=== PATIENT | female | born 1995 | race Caucasian/White ===

== ENCOUNTER 2018-06-08 00:11 | Inpatient (IN) ==
[2018-06-08] MEDS ORDERED: *HR* FentaNYL (PF) 100 MCG/2 ML VIAL IVP STA (05:48)
[2018-06-08] MEDS ORDERED: *HR* LORazepam 2 MG/ML VIAL IVP STA (05:49)
[2018-06-08] MEDS ORDERED: *HR* FentaNYL (PF) 100 MCG/2 ML VIAL IVP PRN (05:52)
[2018-06-08] MEDS ORDERED: Naloxone 0.4 MG/ML INJ IVP PRN (05:59)
[2018-06-08] MEDS: Clindamycin 600 MG/50 ML 600 MG/50 ML IV.SOLN IVPB SCH ×3 (06:08→22:22)
[2018-06-08] MEDS: Nicotine 21 MG PATCH.TD24 TD SCH (06:08)
[2018-06-08] MEDS: Ketorolac 30 MG/ML VIAL IVP SCH ×3 (06:09→22:22)
--- NOTE | 2018-06-08 06:16 | Internal Med History&Physical ---
Date of Encounter: 06/08/18 Time of Encounter: 06:13 Internal Medicine - H&P: HPI Chief complaint: "Face and neck pain and painful swallowing" Admitted From: Hospital to Hospital Transfer Plans for Post Hospital Care: Home History of present illness: Ms. Latham is a 22 year old female who presented to [facility] ED today for increased swelling and pain to her face and neck, and painful swallowing. She had wisdom teeth extraction 2 days ago. She states that dentist knew that she had a dental infection prior to the procedure. She was sent home after extraction with a course of PO clindamycin. She states that symptoms got worse , and she was starting to have some breathing difficulties, so she came to ED for evaluation. ED physician spoke with ENT here, who recommended steroids and IV antibiotics. She was given solumedrol 125 mg IV once and clindamycin 600 mg IV once prior to transfer. She states that breathing difficulties have resolved since arrival here, so there is decreased concern for airway compromise. She still has very painful swallowing, somewhat improved from initial presentation. She states that she feels anxious due to the pain, and she cannot sleep due to the anxiety. She currently smokes 1 PPD tobacco. She denies any PMH. At this time, she denies fever, chills, chest pain, SOB, nausea , vomiting, abdominal pain, changes in bladder, or changes in bowels. Past Med Surg Social Fam HX - Past Medical History Attestation: Yes The following information was validated with the patient. Source: patient Medical history: no medical history Psychiatric history: anxiety, depression - Past Surgical History Surgical History: appendectomy, Additional surgical history: WISDOM TEETH REMOVED ortho surgery on hand - Social History Smoking Status: Current every day smoker Packs per day: 1 Smokeless Tobacco Status: No Alcohol use: occasionally Drug use: none - Family History Mother Name: Danyelle Gomez Age: 42 Living Status: Still Living Hx Family HEENT Disorders: Yes (Migranes) Father Name: Vasu Mayberry Age: 42 Living Status: Still Living Hx Family Cardiac Disorders: Yes (HTN) Hx Family Musculoskeletal Disorders: Yes (arthritis) - Additional Family History Additional family history: Family history verified with patient. Internal Medicine - H&P: Meds Clindamycin HCl 300 mg PO Q6H 06/07/18 [History] HYDROcodone/Acet 5/325 mg [[place] 5-325 mg] 1 tab PO Q6H PRN 06/07/18 [History] Ibuprofen 800 mg PO Q8H 06/07/18 [History] 3 Allergy/AdvReac Type Severity Reaction Status Date / Time Amoxicillin [From Amoxil] Allergy Rash Verified 06/07/18 20:18 Penicillins [PCN] Allergy Rash Verified 06/07/18 20:17 All Systems PM: A 10-system review of systems was performed and is negative for pertinent findings except as documented above in the HPI. - Constitutional Vitals: Temp Pulse Resp BP Pulse Ox 97.7 F 88 14 115/81 96 06/08/18 02:52 06/08/18 02:52 06/08/18 02:52 06/08/18 02:52 06/08/18 02:52 General appearance: Present: cooperative, mild distress (Due to pain), A&O X 3, pleasant, obese, answers questions appropriately - Head Head exam: Present: atraumatic, normocephalic - Eye Eye exam: Present: EOMI, PERRL. Absent: conjunctival injection, nystagmus, scleral icterus - ENT ENT exam: Present: mucous membranes moist, normal external ear exam. Absent: normal oropharynx (Unable to fully evaluate due to patient being unable to open mouth secondary to pain) - Neck Neck exam general surgery: Present: tenderness, trachea midline. Absent: lymphadenopathy, thyromegaly Additional comments: Moderate edema of anterior neck under jaw with moderate TTP - Respiratory Respiratory exam: Present: CTAB. Absent: accessory muscle use, rales, rhonchi, wheezes Additional comments: Normal WOB - Cardiovascular Cardiovascular exam: Present: RRR, +S1, +S2. Absent: diastolic murmur, gallop, rubs, systolic murmur Additional comments: No BLE edema - GI/Abdominal GI/Abdominal exam: Present: normal bowel sounds, soft. Absent: distended, hepatomegaly, mass, splenomegaly, tenderness - Neurological Exam Neurological exam: Present: alert, CN II-XII intact, oriented X3, no focal deficits, strengths equal and symetr throughout. Absent: motor sensory deficit , facial droop, speech deficit - Psychiatric Psychiatric exam: Present: normal affect, normal mood. Absent: agitated, anxious, depressed - Skin Skin exam: Present: dry, intact, warm. Absent: cyanosis - Assessment and plan (1) Cellulitis Current Visit: Yes Status: Acute Assessment and plan: Admit as inpatient with telemetry. Obtain repeat labwork now. Will keep NPO for now due to significant odynophagia. Will consult speech therapy in AM for swallow evaluation. Start IV NS at 125 ml/hr. Continue clindamycin 600 mg IV Q8H. Received one-time dose of solumedrol 125 mg IV at OSH ED. Start toradol 30 mg IV Q8H. Start SL oxycodone and IV fentanyl PRN pain. Will consult ENT in AM; appreciate their input. Monitor closely for any signs of airway compromise. Qualifiers: Site of cellulitis: face Qualified Code(s): L03.211 - Cellulitis of face (2) Dental infection Current Visit: Yes Status: Acute Assessment and plan: Management as per above. (3) Anxiety Current Visit: Yes Status: Acute Assessment and plan: Acute anxiety from stress of illness. Will give ativan 1 mg IV once. (4) Insomnia Current Visit: Yes Status: Acute Assessment and plan: Insomnia secondary to anxiety. Will give ativan 1 mg IV once as per above. Qualifiers: Insomnia type: due to medical condition Qualified Code(s): G47.01 - Insomnia due to medical condition (5) Nicotine dependence Current Visit: Yes Status: Chronic Assessment and plan: Counselled on smoking cessation. Start nicotine transdermal 21 mg QD. Qualifiers: Nicotine product type: cigarettes Substance use status: other nicotine- induced disorder Qualified Code(s): F17.218 - Nicotine dependence, cigarettes , with other nicotine-induced disorders (6) DVT prophylaxis Current Visit: Yes Status: Acute Assessment and plan: Start SCDs and lovenox 40 mg SQ QD. - Time Spent With Patient Total time spent is greater than 50% in coordination of care (as documented) at patient's floor/unit and/or counseling patient: less than 15 minutes
[2018-06-08] MEDS: *HR* Enoxaparin 40 MG/0.4 ML SYRINGE SQ SCH (06:38)
[2018-06-08] MEDS: 0.9 % Sodium Chloride 1,000 ML IVC SCH ×2 (06:38→15:42)
[2018-06-08 06:52] LABS: Basophils % 0.1 %; Hematocrit 44.4 % (35.3-44.9); Immature Granulocytes % 0.5 % (0-4); Lymphocytes # 0.7 K/mcL (0.6-4.6); Lymphocytes % 5.1 %; Mean Corpuscular HGB Conc 33.8 g/dL (31.6-35.5); Mean Corpuscular Hemoglobin 29.8 pg (28.0-33.3); Mean Corpuscular Volume 88.1 fL (83.0-100.0); Monocytes # 0.1 K/mcL (0.0-1.3); Monocytes % 0.5 %; Neutrophils # 12.1 K/mcL (1.6-8.9); Platelet Count 268 K/mcL (140-400); Red Blood Count 5.04 M/mcL (3.82-4.97); Red Cell Distribution Width 12.7 % (11.5-14.5); Segmented Neutrophils % 93.8 %
[2018-06-08 07:07] LABS: Alanine Aminotransferase 12 Units/L (7-52); Albumin 4.1 g/dL (3.5-5.7); Albumin/Globulin Ratio 1.1 (1.1-2.2); Alkaline Phosphatase 58 Units/L (34-104); Aspartate Amino Transferase 12 Units/L (13-39); BUN/Creatinine Ratio 16 (6-26); Bilirubin,Total 0.6 mg/dL (0.3-1.0); Blood Urea Nitrogen 12 mg/dL (6-20); Calcium 9.6 mg/dL (8.6-10.3); Carbon Dioxide 23 mEq/L (23-29); Chloride 100 mEq/L (98-107); Globulin 3.6 g/dL (2.4-3.5); Glucose 138 mg/dL (70-105); Magnesium 2.2 mg/dL (1.6-2.6); Osmolality,Calculated 278 (280-300); Potassium 4.3 mEq/L (3.5-5.1); Sodium 133 mEq/L (136-145); Total Protein 7.7 g/dL (6.4-8.9); eGFR For Non-African Americans > 60 (> 60)
[2018-06-08] MEDS: OXYCODONE Oral CONC 10 MG/0.5 ML ORAL.SYG SL PRN ×3 (10:56→20:00)
--- NOTE | 2018-06-08 16:27 | Internal Med Progress Note ---
Date of Encounter: 06/08/18 Time of Encounter: 16:14 - Assessment and plan (1) Cellulitis Current Visit: Yes Status: Acute Assessment and plan: Continue with IV Clindamycin Qualifiers: Site of cellulitis: face Qualified Code(s): L03.211 - Cellulitis of face (2) Dental infection Current Visit: Yes Status: Acute Assessment and plan: Continue with current medications and IV ATB therapy . (3) Anxiety Current Visit: Yes Status: Acute (4) Insomnia Current Visit: Yes Status: Acute Qualifiers: Insomnia type: due to medical condition Qualified Code(s): G47.01 - Insomnia due to medical condition (5) Nicotine dependence Current Visit: Yes Status: Chronic Assessment and plan: Continue with nicotine patch, encouraged to stop smoking Qualifiers: Nicotine product type: cigarettes Substance use status: other nicotine- induced disorder Qualified Code(s): F17.218 - Nicotine dependence, cigarettes , with other nicotine-induced disorders (6) DVT prophylaxis Current Visit: Yes Status: Acute Assessment and plan: per protocol (7) Chest tightness Current Visit: Yes Status: Acute Assessment and plan: New complaint, ECG obtained, reviewed per this provider, normal tracing with NSR. - Time Spent With Patient Total time spent is greater than 50% in coordination of care (as documented) at patient's floor/unit and/or counseling patient: 25 - 35 minutes - Subjective Interval history: Mrs. Kelli Jackson, is a 22-year-old female who was admitted through the emergency room with diagnosis of dry socket due to wisdom teeth extraction of cellulitis of the right side of the face of dental infection anxiety and insomnia. Patient states that she had her wisdom teeth extracted and she proceeded to smoke about 2 hours after having the dental extraction. Today she presents with chief complaint of right facial and dental pain right facial swelling mild bleeding from the incisions along the gumline and sutures. Review of CBC shows that she has elevated white blood cells of 12.9 increase in red blood cells of 5.04. She rates her pain as a 10 on a scale of 10 today states that is difficult to swallow she has remained nothing by mouth for hospital stay, due to refusal to have bedside swallowing evaluation. Finally the nursing staff did get the patient to complete a bedside swallowing evaluation and she passed with no dysphagia noted. A clear liquid diet was ordered to progress as tolerated. She continues to complain of severe pain, and has been medicated x 1 with Fentanyl and Ativan. These medications were discontinued d/t having oxycodone and Toradol 30 mg available. Will continue with IV Clindamycin for cellulites and dry socket Late in afternoon patient complained of chest tightness and anxiety . EKG was ordered, reviewed per this provider, NS, normal ecg. Will continue current medication regimens - Constitutional Vitals: Temp Pulse Resp BP Pulse Ox 97.9 F 86 17 93/62 94 06/08/18 15:36 06/08/18 15:36 06/08/18 15:36 06/08/18 15:36 06/08/18 15:36 General appearance: Present: cooperative, mild distress (Due to pain), A&O X 3, pleasant, obese, answers questions appropriately - Head Additional comments: rght jaw swelling, with erythema noted, - ENT ENT exam: Present: mucous membranes moist Additional comments: Intact suture over right lower posterior gum line, no active bleeding noted. Mild acute right cervical lymphadenitis present - Respiratory Respiratory exam: Present: CTAB - Cardiovascular Cardiovascular exam: Present: RRR - Neurological Exam Neurological exam: Present: alert, CN II-XII intact, oriented X3, no focal deficits Internal Medicine: Result - Labs CBC & Chem 7: 06/08/18 06:25 06/08/18 06:25 Labs: Short CBC 06/08/18 Range/Units 06:25 WBC 12.9 H (4.3-11.1) K/mcL Hgb 15.0 (11.5-15.4) g/dL Hct 44.4 (35.3-44.9) % Plt Count 268 (140-400) K/mcL Neutrophils # 12.1 H (1.6-8.9) K/mcL BMP 06/08/18 06:25 Sodium 133 L Potassium 4.3 Chloride 100 Carbon Dioxide 23 BUN 12 Creatinine 0.77 Glucose 138 H Calcium 9.6 Liver Function 06/08/18 Range/Units 06:25 Total Bilirubin 0.6 (0.3-1.0) mg/dL AST 12 L (13-39) Units/L ALT 12 (7-52) Units/L Alkaline Phosphatase 58 (34-104) Units/L Albumin 4.1 (3.5-5.7) g/dL - EKG Interpretation EKG Interpreted by Myself: Yes EKG shows normal: sinus rhythm Rate: normal - VTE Documentation of Mechanical Device: Intermittent pneumatic compression device Consult Discharge Plan - Plan Referrals: Gege Niño ENGINE DESIGNER [Primary Care Provider] -
[2018-06-09] MEDS: 0.9 % Sodium Chloride 1,000 ML IVC SCH ×2 (01:39→09:03)
[2018-06-09] MEDS: *HR* Enoxaparin 40 MG/0.4 ML SYRINGE SQ SCH (06:38)
[2018-06-09] MEDS: Clindamycin 600 MG/50 ML 600 MG/50 ML IV.SOLN IVPB SCH ×3 (06:56→21:36)
[2018-06-09] MEDS: Ketorolac 30 MG/ML VIAL IVP SCH ×3 (06:56→21:36)
[2018-06-09] MEDS: Nicotine 21 MG PATCH.TD24 TD SCH (09:03)
[2018-06-09] MEDS: *HR* OxyCODONE Immed Rel 5 MG TABLET PO PRN ×3 (09:56→19:21)
[2018-06-09] MEDS ORDERED: ETHIN ESTRADIOL TP SCH (13:15)
[2018-06-09] MEDS ORDERED: NORELGESTROMIN TP SCH (13:15)
--- NOTE | 2018-06-09 13:16 | Internal Med Progress Note ---
Date of Encounter: 06/09/18 Time of Encounter: 13:13 - Assessment and plan (1) Cellulitis Current Visit: Yes Status: Inactive Assessment and plan: 22-year-old female who had a recent tooth infection and is status post tooth extraction presented with facial swelling and trouble breathing. Her symptoms is consistent with facial cellulitis/soft tissue infection. She received 1 dose of IV steroids and was started on IV antibiotics at the ED, her symptoms ever since have improved. ENT was consulted and will see patient tomorrow. - Patient currently stable, no signs/symptoms of airway impairment. - ENT will see the patient tomorrow. - Continue IV antibiotics and pain control. Qualifiers: Site of cellulitis: face Qualified Code(s): L03.211 - Cellulitis of face (2) Dental infection Current Visit: Yes Status: Inactive (3) DVT prophylaxis Current Visit: Yes Status: Acute Assessment and plan: per protocol (4) Nicotine dependence Current Visit: Yes Status: Chronic Assessment and plan: Continue with nicotine patch, encouraged to stop smoking Qualifiers: Nicotine product type: cigarettes Substance use status: other nicotine- induced disorder Qualified Code(s): F17.218 - Nicotine dependence, cigarettes , with other nicotine-induced disorders - Time Spent With Patient Total time spent is greater than 50% in coordination of care (as documented) at patient's floor/unit and/or counseling patient: 25 - 35 minutes - Subjective Interval history: Patient reported facial swelling has decreased, she was able to talk and to take oral. She has no fever, trouble breathing, or chills. - Constitutional Vitals: Temp Pulse Resp BP Pulse Ox 97.5 F L 91 16 105/71 95 06/09/18 10:57 06/09/18 10:57 06/09/18 10:57 06/09/18 10:57 06/09/18 10:57 General appearance: Present: cooperative, mild distress (Due to pain), A&O X 3, pleasant, obese, answers questions appropriately Exam: PHYSICAL EXAMINATION: GENERAL APPEARANCE: The patient is alert, oriented and in no acute distress. HEENT: Significant soft tissue swelling at the right side of face and right submandibular region. NECK: Supple without lymphadenopathy. HEART: Regular rate and rhythm. LUNGS: No crackles or wheezes are heard. ABDOMEN: Soft, nontender, nondistended with good bowel sounds heard. Inguinal area is normal. EXTREMITIES: Without cyanosis, clubbing or edema. NEUROLOGICAL: Gross nonfocal. SKIN: Warm and dry without any rash. Internal Medicine: Result - Labs CBC & Chem 7: 06/08/18 06:25 06/08/18 06:25 - VTE Documentation of Mechanical Device: Intermittent pneumatic compression device Consult Discharge Plan - Plan Referrals: Gege Niño, EQUIPMENT ENGINEER [Primary Care Provider] -
[2018-06-09] MEDS: Ibuprofen 800 MG TABLET PO PRN (16:05)
[2018-06-09] MEDS: hydrOXYzine pamoate 25 MG CAPSULE PO PRN ×2 (16:05→21:35)
[2018-06-09] MEDS: Ondansetron 4 MG/2 ML VIAL IVP PRN (19:21)
[2018-06-09] MEDS ORDERED: methylPREDNISolone 125 MG/2 ML VIAL IVP STA (22:41)
[2018-06-10] MEDS: *HR* OxyCODONE Immed Rel 5 MG TABLET PO PRN ×3 (00:16→19:53)
[2018-06-10] MEDS: Clindamycin 600 MG/50 ML 600 MG/50 ML IV.SOLN IVPB SCH ×3 (06:02→21:19)
[2018-06-10] MEDS: Ketorolac 30 MG/ML VIAL IVP SCH ×3 (06:02→21:18)
[2018-06-10] MEDS: *HR* Enoxaparin 40 MG/0.4 ML SYRINGE SQ SCH (06:02)
[2018-06-10 06:14] LABS: Eosinophils % 0.1 %; Hematocrit 37.5 % (35.3-44.9); Immature Granulocytes % 0.4 % (0-4); Lymphocytes # 0.8 K/mcL (0.6-4.6); Lymphocytes % 9.3 %; Mean Corpuscular HGB Conc 33.3 g/dL (31.6-35.5); Mean Corpuscular Hemoglobin 29.9 pg (28.0-33.3); Mean Corpuscular Volume 89.7 fL (83.0-100.0); Mean Platelet Volume 10.3 fL (9.4-12.4); Monocytes # 0.1 K/mcL (0.0-1.3); Monocytes % 1.2 %; Neutrophils # 7.5 K/mcL (1.6-8.9); Platelet Count 260 K/mcL (140-400); Red Blood Count 4.18 M/mcL (3.82-4.97); Red Cell Distribution Width 12.7 % (11.5-14.5)
[2018-06-10 06:16] LABS: Hemoglobin 12.5 g/dL (11.5-15.4)
[2018-06-10 06:34] LABS: BUN/Creatinine Ratio 17 (6-26); Blood Urea Nitrogen 12 mg/dL (6-20); Calcium 9.1 mg/dL (8.6-10.3); Carbon Dioxide 23 mEq/L (23-29); Chloride 104 mEq/L (98-107); Glucose 145 mg/dL (70-105); Osmolality,Calculated 278 (280-300); Potassium 4.4 mEq/L (3.5-5.1); Sodium 133 mEq/L (136-145); eGFR For Non-African Americans > 60 (> 60)
[2018-06-10] MEDS: Nicotine 21 MG PATCH.TD24 TD SCH (08:09)
[2018-06-10] MEDS ORDERED: Isovue-370 500 ML INFUS..BTL IV ONE (10:23)
--- NOTE | 2018-06-10 12:06 | Internal Med Progress Note ---
Hospitalist Progress Note - Encounter Date of Encounter: 06/10/18 Time of Encounter: 12:04 - Subjective Interval History: Patient reported facial swelling has decreased, she was able to talk and to take oral. She has no fever, trouble breathing, or chills. She had one episode of shortness of breath last night, she was seen by overnight cashier physician. - Exam Vitals: Temp Pulse Resp BP Pulse Ox 97.3 F L 77 18 108/73 96 06/10/18 10:58 06/10/18 10:58 06/10/18 10:58 06/10/18 10:58 06/10/18 10:58 Exam: PHYSICAL EXAMINATION: GENERAL APPEARANCE: The patient is alert, oriented and in no acute distress. HEENT: right facial swelling and redness noted, improved comparing to yesterday. NECK: Supple without lymphadenopathy. HEART: Regular rate and rhythm. LUNGS: No crackles or wheezes are heard. ABDOMEN: Soft, nontender, nondistended with good bowel sounds heard. Inguinal area is normal. EXTREMITIES: Without cyanosis, clubbing or edema. NEUROLOGICAL: Gross nonfocal. SKIN: Warm and dry without any rash. - Assessment and Plan (1) Cellulitis Current Visit: Yes Status: Inactive Assessment and Plan: 22-year-old female who had a recent tooth infection and is status post tooth extraction presented with facial swelling and trouble breathing. Her symptoms is consistent with facial cellulitis/soft tissue infection. She received 1 dose of IV steroids and was started on IV antibiotics at the ED, her symptoms ever since have improved. ENT was consulted and will see patient today. - Patient currently stable, no signs/symptoms of airway impairment. CT showed soft tissue edema but no fluid collection, gas in the soft tissue, associated nondisplaced fracture of the mandibular alveolar process is unchanged.. - ENT will see the patient today. - Continue IV antibiotics and pain control. Will change to oral abx tomorrow. Plan to dc home tomorrow with oral abx tomorrow. (2) Dental infection Current Visit: Yes Status: Inactive Assessment and Plan: Continue with current medications and IV ATB therapy . (3) DVT prophylaxis Current Visit: Yes Status: Acute Assessment and Plan: per protocol (4) Nicotine dependence Current Visit: Yes Status: Chronic Assessment and Plan: Continue with nicotine patch, encouraged to stop smoking - Time Spent with Patient Total time spent is greater than 50% in coordination of care (as documented) at patient's floor/unit and/or counseling patient: Greater than 35 minutes Plan of Care Discussed with: patient Internal Medicine: Result - Labs CBC & Chem 7: 06/10/18 04:39 06/10/18 04:39 Labs: Short CBC 06/10/18 Range/Units 04:39 WBC 8.5 (4.3-11.1) K/mcL Hgb 12.5 D (11.5-15.4) g/dL Hct 37.5 (35.3-44.9) % Plt Count 260 (140-400) K/mcL Neutrophils # 7.5 (1.6-8.9) K/mcL BMP 06/10/18 04:39 Sodium 133 L Potassium 4.4 Chloride 104 Carbon Dioxide 23 BUN 12 Creatinine 0.69 Glucose 145 H Calcium 9.1 - Impressions Impressions Soft Tissue Neck CT 06/10/18 10:00 IMPRESSION: Status post extraction of the right 3rd mandibular molar. Possible, associated nondisplaced fracture of the mandibular alveolar process is unchanged. Persistent, but improved soft tissue gas in the right parapharyngeal/forming operator space, extending to the right submandibular space. Inflammatory changes of the right submandibular space and overlying subcutaneous soft tissues has improved. No focal fluid collection to suggest abscess. D/ / 06/10/2018 10:53:32 Ruth Lozano MD / brandi Interpreting Provider: Ruth Lozano MD - VTE Documentation of Mechanical Device: Intermittent pneumatic compression device Consult Discharge Plan - Plan Referrals: Gege Niño, SUPERVISOR [employer] [Primary Care Provider] - (1) Cellulitis Qualifiers: Site of cellulitis: face Qualified Code(s): L03.211 - Cellulitis of face (4) Nicotine dependence Qualifiers: Nicotine product type: cigarettes Substance use status: other nicotine- induced disorder Qualified Code(s): F17.218 - Nicotine dependence, cigarettes, with other nicotine-induced disorders
--- NOTE | 2018-06-10 12:43 | ENT - Consult Note ---
Date of Encounter: 06/10/18 Time of Encounter: 12:30 Assessment and Plan (1) Dentoalveolar cellulitis Current Visit: Yes Status: Acute Recommending continuing antibiotics in in-house for 24 hours followed by close outpatient supervision on oral antibiotics scheduled for tonsillectomy in the distant future dropped WBC from 13-8.5 with no neutrophilia History of Present Illness Consult date: 06/10/18 Reason for ENT Consult: other (Dental infection secondary to extraction of third molar right mandible) History of present illness: 22-year-old white female admitted 3 days ago for dental extraction significant air in tissues treated with IV antibiotics repeat CT 3 days later reveal 33% less air subjectively 50% improvement of swelling and discomfort past recurrent tonsillitis history makes patient reasonable candidate for tonsillectomy in future Past Med Surg Social Fam HX - Past Medical History Medical history: no medical history Psychiatric history: anxiety, depression - Past Surgical History Surgical History: appendectomy, Additional surgical history: WISDOM TEETH REMOVED ortho surgery on hand - Social History Smoking Status: Current every day smoker Packs per day: 1 Smokeless Tobacco Status: No Alcohol use: occasionally Drug use: none - Family History Mother Name: Danyelle Gomez Age: 42 Living Status: Still Living Hx Family HEENT Disorders: Yes (Migranes) Father Name: Vasu Mayberry Age: 42 Living Status: Still Living Hx Family Cardiac Disorders: Yes (HTN) Hx Family Musculoskeletal Disorders: Yes (arthritis) Medications and Allergies Clindamycin HCl 300 mg PO Q6H 06/07/18 [History] HYDROcodone/Acet 5/325 mg [[place] 5-325 mg] 1 tab PO Q6H PRN 06/07/18 [History] Ibuprofen 800 mg PO Q8H 06/07/18 [History] Norelgestromin/Ethin.estradiol [Xulane Patch] 1 each TD QWEEK 06/08/18 [History] 3 Allergy/AdvReac Type Severity Reaction Status Date / Time Amoxicillin [From Amoxil] Allergy Rash Verified 06/07/18 20:18 Penicillins [PCN] Allergy Rash Verified 06/07/18 20:17 ENT Exam Initial Vital Signs Temp Pulse Resp BP Pulse Ox 97.7 F 88 14 115/81 96 06/08/18 02:52 06/08/18 02:52 06/08/18 02:52 06/08/18 02:52 06/08/18 02:52 - ENT normal pinna, normal nares, normal mucosa, no hearing loss, no congestion, Other (Asymmetric enlargement right tonsil angle of jaw swelling consistent with recent dental extraction with infection). negative: decreased hearing, deviated nasal septum, nasal discharge, poor nursing home, dentures, mucosal exudate, dry mucosa - Neck no masses, trachea midline, no lymphadectomy, other (CT identified free air in right parapharyngeal space). negative: deviated trachea, diffuse goiter, limited ROM Exam Initial Vital Signs Temp Pulse Resp BP Pulse Ox 97.7 F 88 14 115/81 96 06/08/18 02:52 06/08/18 02:52 06/08/18 02:52 06/08/18 02:52 06/08/18 02:52 Results - Labs 06/10/18 04:39 06/10/18 04:39 Abnormal lab results Sodium 133 mEq/L (136-145) L 06/10/18 04:39 Glucose 145 mg/dL (70-105) H 06/10/18 04:39 Calculated Osmolality 278 (280-300) L 06/10/18 04:39 AST 12 Units/L (13-39) L 06/08/18 06:25 Globulin 3.6 g/dL (2.4-3.5) H 06/08/18 06:25 Diabetes panel 06/10/18 Range/Units 04:39 Sodium 133 L (136-145) mEq/L Potassium 4.4 (3.5-5.1) mEq/L Chloride 104 (98-107) mEq/L Carbon Dioxide 23 (23-29) mEq/L BUN 12 (6-20) mg/dL Creatinine 0.69 (0.60-1.20) mg/dL Glucose 145 H (70-105) mg/dL Calcium 9.1 (8.6-10.3) mg/dL Calcium panel 06/10/18 Range/Units 04:39 Calcium 9.1 (8.6-10.3) mg/dL Pituitary panel 06/10/18 Range/Units 04:39 Sodium 133 L (136-145) mEq/L Potassium 4.4 (3.5-5.1) mEq/L Chloride 104 (98-107) mEq/L Carbon Dioxide 23 (23-29) mEq/L BUN 12 (6-20) mg/dL Creatinine 0.69 (0.60-1.20) mg/dL Glucose 145 H (70-105) mg/dL Calcium 9.1 (8.6-10.3) mg/dL Adrenal panel 06/10/18 Range/Units 04:39 Sodium 133 L (136-145) mEq/L Potassium 4.4 (3.5-5.1) mEq/L Chloride 104 (98-107) mEq/L Carbon Dioxide 23 (23-29) mEq/L BUN 12 (6-20) mg/dL Creatinine 0.69 (0.60-1.20) mg/dL Glucose 145 H (70-105) mg/dL Calcium 9.1 (8.6-10.3) mg/dL All other labs normal. Consult Discharge Plan - Plan Referrals: Gege Niño, NICOLÁS [Primary Care Provider] -
--- NOTE | 2018-06-10 17:35 | Electrocardiograph Report ---
[address] [place] [address] Test Date: 2018-06-08 Pat Name: Payal Latham Department: 113 Room: 3B39 Gender: F Back Sizer: VINEET : 1995 Requested By: Lydia Madison Order Number: [id number] Reading MD: Andree Cruz Measurements Intervals [place] Rate: 79 P: 41 NV: 131 QRS: 26 QRSD: 91 T: 21 QT: 372 QTc: 407 Interpretive Statements SINUS RHYTHM Electronically Signed On 06-10-2018 17:33:38 EDT by Andree Cruz
[2018-06-10] MEDS: Ondansetron 4 MG/2 ML VIAL IVP PRN (20:24)
[2018-06-10] MEDS: hydrOXYzine pamoate 25 MG CAPSULE PO PRN (22:32)
[2018-06-10] MEDS ORDERED: Menthol 9.1 MG LOZENGE PO PRN (23:31)
[2018-06-11] MEDS: *HR* Enoxaparin 40 MG/0.4 ML SYRINGE SQ SCH (05:55)
[2018-06-11] MEDS: Ketorolac 30 MG/ML VIAL IVP SCH ×2 (05:55→13:41)
[2018-06-11] MEDS: Clindamycin 600 MG/50 ML 600 MG/50 ML IV.SOLN IVPB SCH ×2 (05:55→13:40)
[2018-06-11 06:13] LABS: Basophils % 0.1 %; Eosinophils # 0.1 K/mcL (0.0-0.6); Eosinophils % 0.7 %; Hematocrit 33.4 % (35.3-44.9); Immature Granulocytes % 0.3 % (0-4); Lymphocytes # 3.1 K/mcL (0.6-4.6); Lymphocytes % 33.6 %; Mean Corpuscular HGB Conc 32.9 g/dL (31.6-35.5); Mean Corpuscular Volume 88.1 fL (83.0-100.0); Mean Platelet Volume 9.9 fL (9.4-12.4); Monocytes # 0.6 K/mcL (0.0-1.3); Monocytes % 6.7 %; Neutrophils # 5.4 K/mcL (1.6-8.9); Platelet Count 243 K/mcL (140-400); Red Blood Count 3.79 M/mcL (3.82-4.97); Red Cell Distribution Width 12.7 % (11.5-14.5); Segmented Neutrophils % 58.6 %
[2018-06-11 06:36] LABS: BUN/Creatinine Ratio 18 (6-26); Blood Urea Nitrogen 13 mg/dL (6-20); Calcium 8.6 mg/dL (8.6-10.3); Carbon Dioxide 23 mEq/L (23-29); Chloride 111 mEq/L (98-107); Glucose 102 mg/dL (70-105); Osmolality,Calculated 288 (280-300); Sodium 139 mEq/L (136-145); eGFR For Non-African Americans > 60 (> 60)
[2018-06-11] MEDS: Ibuprofen 800 MG TABLET PO PRN (07:57)
[2018-06-11] MEDS: Nicotine 21 MG PATCH.TD24 TD SCH (07:58)
[2018-06-11] MEDS: *HR* OxyCODONE Immed Rel 5 MG TABLET PO PRN (09:31)
[2018-06-11] MEDS: hydrOXYzine pamoate 25 MG CAPSULE PO PRN (10:52)
[2018-06-11 11:16] VITALS: BP 117/74
--- NOTE | 2018-06-11 14:36 | Discharge Summary ---
- NOTES TO OUTPATIENT PROVIDER Notes to Outpatient Provider: Patient is to follow up with ENT will cont with clindamycin Orders not resulted at time of discharge: Pending orders 06/08/18 06:25 Culture,Blood [BC] Stat Date of Encounter: 06/11/18 Time of Encounter: 14:27 - Discharge Diagnosis (1) Cellulitis Priority: Primary Status: Inactive Qualifiers: Site of cellulitis: face Qualified Code(s): L03.211 - Cellulitis of face (2) Dental infection Priority: Secondary Status: Inactive (3) Nicotine dependence Priority: Secondary Status: Chronic Qualifiers: Nicotine product type: cigarettes Substance use status: other nicotine- induced disorder Qualified Code(s): F17.218 - Nicotine dependence, cigarettes , with other nicotine-induced disorders Hospital course: Ms. Latham is a 22 year old female recent tooth infection status post tooth extraction presented with facial swelling and trouble breathing. She had been taking clindamycin 300 mg daily Her symptoms were consistent with facial cellulitis/soft tissue infection. She did receive 1 dose of IV steroids were started on IV antibiotics clindamycin. She was seen by ENT who recommended continuation of IV antibiotics for 24 hours and then to switch over to oral antibiotics continue clindamycin 450 mg 3 times a day 1 week patient will follow-up with ENT as outpatient she may require tonsillectomy in the distant future per ENT recommendations. Patient is afebrile hemodynamically stable. Lab work is unremarkable. Airway is patent and stable oxygen saturations are stable on room air I did review follow-up instructions as well as I did give prescription for 450 mg of clindamycin by mouth 3 times a day for 1 week. Patient verbalized understanding she is ready for discharge. Discharge discussed with: patient - Time Spent with Patient Total time spent providing and/or coordinating discharge services: - Discharge Medications Prescriptions: Clindamycin HCl [Cleocin HCl] 150 mg PO TID #21 capsule Clindamycin HCl [Cleocin HCl] 300 mg PO TID #21 cap Home Medications: Clindamycin HCl 300 mg PO Q6H 06/07/18 [History] HYDROcodone/Acet 5/325 mg [Berlin 5-325 mg] 1 tab PO Q6H PRN 06/07/18 [History] Ibuprofen 800 mg PO Q8H 06/07/18 [History] Norelgestromin/Ethin.estradiol [Xulane Patch] 1 each TD QWEEK 06/08/18 [History] Clindamycin HCl [Cleocin HCl] 150 mg PO TID #21 capsule 06/11/18 [Rx] Clindamycin HCl [Cleocin HCl] 300 mg PO TID #21 cap 06/11/18 [Rx] Allergies/Adverse Reactions: 3 Allergy/AdvReac Type Severity Reaction Status Date / Time Amoxicillin [From Amoxil] Allergy Rash Verified 06/07/18 20:18 Penicillins [PCN] Allergy Rash Verified 06/07/18 20:17 Date of admission: 06/08/18 05:59 Primary care physician: Gege Niño CNP Consults: 06/08/18 05:51 Consult to ENT [CONS] Routine Consulting Provider: ENT [facility] Reason for Consult: Facial Cellulitis Call Completed: No 06/08/18 05:58 Consult for Pharmacy Education [CONS] Stat Reason for Consult: Please verify home medications. Notify MD when this is completed. Thanks. Call Completed: No 06/08/18 06:08 Consult to Dietary Services Manager [CONS] Routine Reason for SW Consult: Discharge planning. May need home IV antibiotics. 06/09/18 22:42 Consult to Respiratory Therapy [CONS] Routine Reason for Consult: Evaluate oropharynx for need of intubation Call Completed: No Consult to Respiratory Therapy [CONS] Stat Reason for Consult: Please evaluate for airway compromise, and let MD know if you recommend intubation. Thanks. Time Notified: 22:44 Call Completed: Yes Discharging clinician: Chloe Farris Anticipated date of discharge: 06/11/18 - Constitutional Vitals: Temp Pulse Resp BP Pulse Ox 97.5 F L 70 18 117/74 95 06/11/18 11:11 06/11/18 11:11 06/11/18 11:11 06/11/18 11:11 06/11/18 11:11 General appearance: Present: cooperative, A&O X 3, pleasant, obese, answers questions appropriately - Head Head exam: Present: atraumatic, normocephalic - Eye Eye exam: Present: PERRL, conjuntiva pink, sclera anicteric Pupils: Present: PERRL - Neck Neck exam general surgery: Present: supple, trachea midline. Absent: lymphadenopathy - Respiratory Respiratory exam: Present: CTAB. Absent: accessory muscle use, rales, rhonchi, wheezes - Cardiovascular Cardiovascular exam: Present: RRR, +S1, +S2. Absent: diastolic murmur, gallop, rubs, systolic murmur - GI/Abdominal GI/Abdominal exam: Present: normal bowel sounds, soft, no peritoneal signs. Absent: distended, tenderness - Extremities Exam Extremities exam: Present: warm, radial pulses palpable and symmetrical. Absent : calf tenderness, cyanotic, pedal edema - Neurological Exam Neurological exam: Present: CN II-XII intact, oriented X3, no focal deficits. Absent: pronater drift, facial droop, speech deficit - Skin Skin exam: Present: dry, intact - Patient Status Disposition: Home, Self-Care Condition: Fair Functional capacity at discharge: independent ambulation Overall status at discharge: patient is back to baseline - Discharge Instructions Instructions: Cellulitis (DC) Follow Up With: [facility] [Provider Group] - 06/13/18 10:30 am - Diet and Activity Activity: increase activity as tolerated Diet: regular diet (Soft diet) - VTE Documentation of Mechanical Device: Intermittent pneumatic compression device
== END 2018-06-11 15:42 | disposition home or self-care (01) | DRG 603 ==
LOC: 3BNU
PROVIDERS: ADMIT Family Medicine; ATTEND Family Medicine

== ENCOUNTER → 2019-01-21 22:15 | Observation (INO) ==
[2019-01-21 21:12] VITALS: BP 109/59
[2019-01-21 21:14] LABS: Bilirubin,Urine Negative (Negative); Blood,Urine Negative (Negative); Clarity,Urine Turbid (Clear); Color,Urine Yellow (Yellow); Glucose,Urine (UA) Normal (Normal); Ketones,Urine Negative (Negative); Leukocyte Esterase,Urine Moderate (Negative); Nitrite,Urine Negative (Negative); Protein,Urine Trace mg/dL (Neg-Trace); Specific Gravity,Urine 1.019 (1.010-1.025); Urobilinogen,Urine Normal (Normal)
[2019-01-21 21:17] LABS: Bacteria,Urine Moderate per hpf (None-Few); Hyaline Casts,Urine Few per lpf (None-Few); RBC,Urine 0-3 per hpf (0-3); Squamous Epithelial Cell,Urine Many per lpf (None-Few); WBC,Urine 30-50 per hpf (0-3)
--- NOTE | 2019-01-21 21:32 | Discharge Summary ---
Date of Encounter: 01/21/19 Time of Encounter: 21:33 - Discharge Diagnosis (1) 31 weeks gestation of Priority: Primary Status: Acute Comments: Admitted to observation for labor and possible SROM evaluation Patient states she has been leaking all day and has changed pants 3 times. States the fluid is gushing at random times, even while sitting. Denies odor or color. Patient reports positive movement and denies bleeding and contractions. Cervix appears closed on SSE Patient is to follow up as scheduled for routine care. (2) Vaginal discharge during in third trimester Priority: Secondary Status: Acute Comments: SSE performed. Moderate amount of white creamy discharge noted. Vaginosis panel collected, GC/Chlamydia cultures obtained, FERN sample obtained and negative as well as negative Nitrazine. Vaginosis, GC/Chlamydia all pending at time of note. Will treat as appropriate for any positive results. - Discharge Medications Prescriptions: No Action Vit #108/Iron/FA [ One Tablet] 1 each PO DAILY Nitrofurantoin Monohyd/M-Cryst [Macrobid 100 mg Capsule] 100 mg PO BID #14 capsule Home Medications: Nitrofurantoin Monohyd/M-Cryst [Macrobid 100 mg Capsule] 100 mg PO BID #14 capsule 01/09/19 [Rx] Vit #108/Iron/FA [ One Tablet] 1 each PO DAILY 01/09/19 [History] Allergies/Adverse Reactions: Allergy/AdvReac Type Severity Reaction Status Date / Time Amoxicillin [From Amoxil] Allergy Rash Verified 06/07/18 20:18 Penicillins [PCN] Allergy Rash Verified 06/07/18 20:17 Data Procedures and tests throughout hospitalization: Laboratory Tests 01/21/19 01/21/19 21:00 21:00 Urine Color Yellow Urine Clarity Turbid A Urine pH 7.0 Ur Specific Vivian 1.019 Urine Protein Trace Urine Glucose (UA) Normal Urine Ketones Negative Urine Blood Negative Urine Nitrite Negative Urine Bilirubin Negative Urine Urobilinogen Normal Ur Leukocyte Esterase Moderate H Urine Microscopic RBC 0-3 Urine Microscopic WBC 30-50 H Ur Squamous Epith Cells Many H Urine Bacteria Moderate H Hyaline Casts Few Ur Culture Indicated? NO. A Ur Drug Screen Interp See Below Labs on day of discharge: Labs from last 24 hours 01/21/19 01/21/19 21:00 21:00 Urine Color Yellow Urine Clarity Turbid A Urine pH 7.0 Ur Specific Vivian 1.019 Urine Protein Trace Urine Glucose (UA) Normal Urine Ketones Negative Urine Blood Negative Urine Nitrite Negative Urine Bilirubin Negative Urine Urobilinogen Normal Ur Leukocyte Esterase Moderate H Urine Microscopic RBC 0-3 Urine Microscopic WBC 30-50 H Ur Squamous Epith Cells Many H Urine Bacteria Moderate H Hyaline Casts Few Ur Culture Indicated? NO. 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 Time Attestation: Total time spent providing and/or coordinating discharge services: Time Spent: Less than 30 minutes Exam - Constitutional Vitals: Temp Pulse Resp BP 98.2 F 85 15 109/59 01/21/19 21:02 01/21/19 21:02 01/21/19 21:02 01/21/19 21:02 General appearance IM: A&O X 3, pleasant, no acute distress, answers questions appropriately - Respiratory Respiratory exam: Present: CTAB - Cardiovascular Cardiovascular exam IM: Present: RRR, +S1, +S2 - GI/Abdominal GI/Abdominal exam IM: normal bowel sounds, soft - Rectal Rectal exam: deferred - External exam: normal external exam - Extremities Exam Extremities exam IM: Present: full ROM, normal capillary refill, normal inspection - Neurological Exam Neurological exam: alert, normal gait, oriented X3 - VTE Reasons for not Prescribing Prophylaxis: Treatment not Indicated - Low risk for VTE
[2019-01-21 21:36] LABS: Amphetamine Screen,Urine Negative ng/mL (Cutoff=1000); Barbiturate Screen,Urine Negative ng/mL (Cutoff=200); Benzodiazepines Screen,Urine Negative ng/mL (Cutoff=200); Cannabinoid Screen,Urine Negative ng/mL (Cutoff = 50); Cocaine Screen,Urine Negative ng/mL (Cutoff= 300); Opiate Screen,Urine Negative ng/mL (Cutoff=300); Phencyclidine Screen,Urine Negative ng/mL (Cutoff=25)
[2019-01-21 22:22] LABS: Candida DNA Not Detected (Not Detect); Gardnerella DNA Not Detected (Not Detect); Trichomonas DNA Not Detected (Not Detect)
== END | disposition home or self-care (01) ==
LOC: 1NENULAB
PROVIDERS: ADMIT Registered Nurse; ATTEND Registered Nurse

== ENCOUNTER 2019-03-20 08:09 | Inpatient (IN) ==
[2019-03-20] MEDS ORDERED: Famotidine 20 MG/2 ML VIAL IVP ONE (08:14)
[2019-03-20] MEDS ORDERED: Ringers Solution, Lactated 1,000 ML IVC ONE (08:14)
[2019-03-20] MEDS ORDERED: Clindamycin 900 MG/50 ML 900 MG/50 ML IV.SOLN IVPB ONE (08:14)
[2019-03-20] MEDS ORDERED: Gentamicin 350 MG in 0.9 % Sodium Chloride 100 ML IVPB ONE (08:14)
[2019-03-20] MEDS ORDERED: Metoclopramide 10 MG/2 ML VIAL IVP ONE (08:14)
[2019-03-20] MEDS ORDERED: Albuterol 2.5 MG/3 ML NEBULIZER IH ONE (08:30)
--- NOTE | 2019-03-20 08:37 | OB/GYN History & Physical ---
Date of Encounter: 03/20/19 Time of Encounter: 08:32 Assessment and Plan (1) 39 weeks gestation of Current visit: Yes Status: Acute (2) Previous delivery affecting Current visit: Yes Status: Acute Patient was offered and declines TOLAC. Informed consent previously obtained for repeat . Patient has no questions today regarding the procedure (3) Admission for sterilization Current visit: Yes Status: Acute Patient is absolutely certain she does not desire future fertility. She has been offered and declines all long acting reversible contraception. Informed consent previously obtained. Verbal consent again confirmed today. (4) Obesity complicating in third trimester Current visit: Yes Status: Acute (5) Tobacco abuse Current visit: Yes Status: Acute Breathing treatment ordered postoperatively. Patient has been counseled regarding the effects of smoking in . She will be counseled on the effects of smoking in and around the infant on . (6) Group B streptococcal infection during Current visit: Yes Status: Acute Patient is not ruptured. Peds will be notified, but no need for prophylaxis (7) Allergy history, penicillin Current visit: No Status: Acute (8) Allergy to amoxicillin Current visit: No Status: Acute History of Present Illness Chief complaint: repeat section HPI: Ms. Latham is a 23 year old female G 3 P 0-1-1-2 at 39 2/7 weeks admitted for repeat section. Patient has a history of 36 week twin . She declines TOLAC and would like to proceed with repeat with tubal ligation. She is absolutely certain she does not desire future fertility. Her is complicated by history of prior , history of GDM (noncompliant with testing this ), GBS positive, and history of depression. She denies any leaking fluid, vaginal bleeding, or contractions. She reports good movements. A positive Rubella Immune Varicella Immune Past Med Surg Social Fam HX - Past Medical History Source: patient Medical history: no medical history Additional medical history: GDM with first Psychiatric history: anxiety, depression - Past Surgical History Surgical History: Additional surgical history: WISDOM TEETH REMOVED, ortho surgery on hand - Social History Smoking Status: Current every day smoker Smokeless Tobacco Status: No Alcohol use: none Drug use: none Current living situation: Home - Independent - Family History Mother Living Status: Still Living Hx Family Cardiac Disorders: No Hx Family Respiratory Disorders: No Hx Family HEENT Disorders: Yes (Migranes) Father Living Status: Still Living Hx Family Cardiac Disorders: No Hx Family Respiratory Disorders: No Hx Family Cancer: No Hx Family GI Disorders: No Hx Family Endocrine Disorder: No Hx Family Neuromuscular Disorders: No Hx Family Neurologic Disorders: No Hx Family HEENT Disorders: No Hx Family Autoimmune Disorders: No Obstetrical History - Pregnancies : 3 Para: 1 Term: 0 : 1 Ab's: 1 Livin - History/Complications History/Complications: history of twin at 36 weeks Medications and Allergies Nitrofurantoin Monohyd/M-Cryst [Macrobid 100 mg Capsule] 100 mg PO BID #14 capsule 01/09/19 [Rx] Vit #108/Iron/FA [ One Tablet] 1 each PO DAILY 01/09/19 [History] Allergy/AdvReac Type Severity Reaction Status Date / Time Amoxicillin [From Amoxil] Allergy Rash Verified 06/07/18 20:18 Penicillins [PCN] Allergy Rash Verified 06/07/18 20:17 Review of System OB All systems PM: reviewed and no additional remarkable complaints except as stated - Constitutional Constitutional ROS IM: no chills, no fatigue, no fever(s) - Genitourinary Genitourinary: no difficulty urinating, no pelvic pain, no vaginal dryness, no vaginal odor - Menstruation Menstruation: amenorrhea Exam - Constitutional Constitutional: well developed, well nourished, no acute distress, obese - HEENT HEENT: EOMI - Neck Neck exam: nuchal rigidity - Lungs Respiratory exam: CTAB - Cardiovascular Cardiovascular exam: RRR - Abdomen Abdomen: Present: bowel sounds normal, gravid, non tender Results All other labs normal. - VTE Reasons for not Prescribing Prophylaxis: Treatment not Indicated - Low risk for VTE
[2019-03-20 09:16] LABS: Basophils % 0.2 %; Eosinophils # 0.1 K/mcL (0.0-0.6); Eosinophils % 0.9 %; Hematocrit 34.3 % (35.3-44.9); Hemoglobin 11.3 g/dL (11.5-15.4); Immature Granulocytes % 0.4 % (0-4); Lymphocytes # 2.1 K/mcL (0.6-4.6); Lymphocytes % 18.2 %; Mean Corpuscular HGB Conc 32.9 g/dL (31.6-35.5); Mean Corpuscular Hemoglobin 28.8 pg (28.0-33.3); Mean Corpuscular Volume 87.5 fL (83.0-100.0); Mean Platelet Volume 10.3 fL (9.4-12.4); Monocytes # 0.7 K/mcL (0.0-1.3); Monocytes % 6.3 %; Neutrophils # 8.7 K/mcL (1.6-8.9); Platelet Count 276 K/mcL (140-400); Red Blood Count 3.92 M/mcL (3.82-4.97); Red Cell Distribution Width 13.5 % (11.5-14.5)
--- NOTE | 2019-03-20 09:18 | Anesthesia Evaluation PreOp ---
Date of Encounter: 03/20/19 Time of Encounter: 09:15 - Past History Planned Operation: repeat c/s Cardiac History: Denies any Significant Hx Pulmonary History: Smoker, Pack/yr (6) Other Medical History: Diabetes Type II (gestational), GERD, Other (anemia, anxieety) Anesthesia History: No Prior Anesthetic Complications, Past Anesthesia (c/s, appy, hand) Alcohol Use: none Drug use: none Medications and Allergies Nitrofurantoin Monohyd/M-Cryst [Macrobid 100 mg Capsule] 100 mg PO BID #14 capsule 01/09/19 [Rx] Vit #108/Iron/FA [ One Tablet] 1 each PO DAILY 01/09/19 [History] Allergy/AdvReac Type Severity Reaction Status Date / Time Amoxicillin [From Amoxil] Allergy Rash Verified 06/07/18 20:18 Penicillins [PCN] Allergy Rash Verified 06/07/18 20:17 - Meds/Allergy Pre-op Review Medications Reviewed: Yes Allergies Reviewed: Yes Beta Blockers on Current Med List: No Anesthesia Exam Vital Signs/O2 Sat, Most Current Temp Pulse Resp BP 98.7 F 87 16 107/65 03/20/19 08:22 03/20/19 08:22 03/20/19 08:22 03/20/19 08:22 Height: 5'2" Weight: 99 NPO (# of Hours): 8 Pain Scale: 1 Pain Scale Used: Numeric (1 - 10) - HEENT Pupil (Motor): Pupils equal Mallampati: II Teeth: Normal Oral Opening: Greater than 3 - MARKETING MGR LOC: Oriented MARKETING MGR Motor: Normal RUE, Normal LUE, Normal RLE, Normal LLE, Normal Face MARKETING MGR Sensory: Normal: RUE, LUE, RLE, LLE, Face - Cardiac Rhythm: Regular Murmur: None - Pulmonary Breath Sounds: bilateral Clear Respiratory Effort: Symmetrical Anesthesia Assess/Plan ASA Score: 3 (smoker, DM, anxiety, obesity) Level of consciousness: Cooperative Anesthetic Plan: Spinal (risks discusssed, questions answered, consented) Autologous Blood: No Monitoring Plan: Standard Monitors Recovery Plan: PACU
[2019-03-20] MEDS ORDERED: *HR* Morphine Sulfate/PF 10 MG/10 ML AMPUL ONE (09:40)
[2019-03-20] MEDS ORDERED: *HR* FentaNYL (PF) 100 MCG/2 ML VIAL ONE (09:40)
[2019-03-20] MEDS ORDERED: *HR* Oxytocin 10 UNIT/ML VIAL IM ONE (09:41)
[2019-03-20] MEDS ORDERED: *HR* Meperidine 50 MG/ML SYRINGE IVP PRN (09:57)
[2019-03-20] MEDS ORDERED: Acetaminophen IV 1,000 MG/100 ML INFUS..BTL IVPB ONE (09:57)
[2019-03-20] MEDS ORDERED: *HR* HYDROmorphone (PF) 1 MG/ML SYRINGE IVP PRN (09:57)
[2019-03-20] MEDS ORDERED: Ondansetron 4 MG/2 ML VIAL IVP PRN ×2 (09:57→14:26)
--- NOTE | 2019-03-20 10:05 | Anesthesia Procedures ---
Date of Encounter: 03/20/19 Time of Encounter: 10:22 Procedures: Anesthesia - Epidural/Spinal Patient examined: Yes OB Eval: Gestational age: 39.2 OB Eval: : 3 OB Eval: Hx Para: 2 OB Eval: Dilated at (cm): 2 OB Eval: Contractions: Non-stressed pattern Consent Obtained: Yes Supplemental Oxygen: None/Room Air Site Prep: Aseptic Technique, Sterile prep and drape, 0.5% Chlorhexidine/Alcohol Patient position: upright Local Anesthetic: Lidocaine 1% Amount of Local Anesthetic used: 3 Interspace Used: L3-L4 Loss of Resistance (SILVIA): No Blood: No CSF: Yes Paresthesia: No Spinal Needle Gauge: 25 Spinal Dose: marcaine 12mg, duramorph 0.25mg fentanyl 10mcg Procedure: aseptic, tolerated well, VSS, effective Vitals + FHT's: 104/75 88 16 fht 132
[2019-03-20] MEDS ORDERED: EPHEDrine 50 MG/ML VIAL ONE (10:15)
[2019-03-20 10:30] LABS: Amphetamine Screen,Urine Negative ng/mL (Cutoff=1000); Barbiturate Screen,Urine Negative ng/mL (Cutoff=200); Benzodiazepines Screen,Urine Negative ng/mL (Cutoff=200); Cannabinoid Screen,Urine Negative ng/mL (Cutoff = 50); Cocaine Screen,Urine Negative ng/mL (Cutoff= 300); Opiate Screen,Urine Negative ng/mL (Cutoff=300); Phencyclidine Screen,Urine Negative ng/mL (Cutoff=25)
[2019-03-20] MEDS ORDERED: Oxytocin 20 units/ LR 1000 mL 20 UNIT/1,000 ML BAG IVC ONE (11:55)
--- NOTE | 2019-03-20 12:05 | OB/GYN Procedure Note ---
Section - Date of procedure: 03/20/19 Preop diagnosis: desires repeat , desires sterilization Post-op diagnosis: same Procedure: section, repeat low transverse, bilateral tubal ligation Surgeon: Joanne Connor Blood Loss: 400 Was there an junior sales assistant present: Yes Kaiako Kura [place]: Noemy Watt Study Hall Supervisor: Vasu Galeas Anesthesia Type: Spinal section complications: none Disposition: PACU Specimens: Placenta, Right tube segment, Left tube segment - Infant (s) Infant A Infant Delivery Date: 03/20/19 Presentation: vertex Gender: Female Viability: Viable at 1 minute: 8 at 5 minutes: 9 Placenta: spontaneous Cord: nuchal cord, 3 umbilical vessels, delivered through nuchal - Narrative Narrative: Patient was taken to the operative suite and placed under spinal anesthetic. She was then prepped and draped in normal sterile fashion in the dorsal supine position. Timeout was then performed. Antibiotics were given at room time. SCDs are on and active. Pfannenstiel skin incision is then made and carried through to underlying layer of fascia with the Bovie. The fascia was then incised in the midline and incision extended laterally with the Galvan scissors. The fascia was tented up and dissected off the rectus muscles sharply. The rectus muscles were in the midline and the peritoneum was tented up and entered sharply with the Metzenbaum scissors. The peritoneal incision was then extended bluntly. The bladder blade was then inserted and the vesicouterine peritoneum was identified. A low transverse uterine incision was then made superior to the bladder reflection. The incision was extended digitally. The vertex was brought to the incision and the was delivered using fundal pressure. There was a loose nuchal cord that was delivered through. Cord was clamped and cut. was handed to waiting nursery staff. Placenta delivered spontaneously complete and intact with a three-vessel cord. The uterus was cleared of all clots and debris using moist laparotomy sponge. The uterine incision was then closed using 0 Vicryl in a running locked fashion. A second layer of the same suture was used to obtain excellent hemostasis. Attention was then turned to the patient's tubes. The right tube was grasped and followed to the fimbriated end. The midportion of the tube was then grasped and elevated. A knuckle of tube was then double suture ligated using O plain gut. The knuckle of tube was then transected in a Holl[place]pple fashion. Hemostasis was a ssured and the tube was returned to the abdomen. Attention was then turned to the patient's left adnexa. The left tube was then grasped and followed to the fimbriated end. The fimbria were adhered to the left ovary and the adhesions were taken down using the Bovie electrocautery. A partial salpingectomy with fimbriectomy was then performed using O plain gut. The distal portion of the tube was then transected and hemostasis was assured. The tube was returned to the abdomen. The abdomen was then cleared of all clots and debris using copious irrigation. The fascial incision was then closed using 0 PDS in a running fashion. The subcuticular tissue was then reapproximated using 0 Vicryl in a running fashion. The skin was closed using 4-0 Vicryl in a subcuticular fashion. [place]ank dressing is then placed. Mother and infant taken to recovery in stable condition.
[2019-03-20] MEDS ORDERED: Ringers Solution, Lactated 1,000 ML ONE (13:01)
--- NOTE | 2019-03-20 14:18 | Anesthesia Evaluation Post Op ---
Date of Encounter: 03/20/19 Time of Encounter: 14:18 - Vital Signs Vital Signs: Vital Signs/O2 Sat, Most Current Temp Pulse Resp BP Pulse Ox 98.7 F 87 18 107/65 97 03/20/19 08:22 03/20/19 08:22 03/20/19 09:17 03/20/19 08:22 03/20/19 09:17 - Lungs Lungs: Clear Ascult./Percussion - Airway Airway: Non-obstructed - Cardiovascular Regular Rate - Mental Status Mental Status: Alert & Oriented, Answers Appropriately - Pain Pain Scale: 4 Pain Scale used: Numeric (1 - 10) - Nausea Vomiting Nausea Vomiting: Not Present - Hydration Hydration: NPO, Mendes catheter - Discharge PostOp Status: Transfer Patient to floor
[2019-03-20] MEDS ORDERED: Sennosides 8.6 MG TABLET PO PRN (14:26)
[2019-03-20] MEDS ORDERED: *HR* OxyCODONE Immed Rel 5 MG TABLET PO PRN (14:26)
[2019-03-20] MEDS ORDERED: Simethicone 80 MG TAB.CHEW PO PRN (14:26)
[2019-03-20] MEDS ORDERED: Metoclopramide 10 MG/2 ML VIAL IVP PRN (14:26)
[2019-03-20] MEDS ORDERED: Acetaminophen 325 MG TABLET PO PRN (14:26)
[2019-03-20] MEDS ORDERED: Oxytocin 20 units/ LR 1000 mL 20 UNIT/1,000 ML BAG IVC SCH (14:30)
[2019-03-20] MEDS: *HR* OxyCODONE/APAP 5/325 TABLET PO PRN ×3 (14:55→23:18)
[2019-03-20] MEDS ORDERED: Nitrofurantoin (BID) 100 MG CAPSULE PO SCH (21:00)
[2019-03-21] MEDS: *HR* OxyCODONE/APAP 5/325 TABLET PO PRN ×4 (04:07→20:35)
[2019-03-21] MEDS: Ibuprofen 600 MG TABLET PO PRN ×3 (05:24→20:36)
[2019-03-21] MEDS: Prenatal Vit/FA 1 EACH TABLET PO SCH (08:57)
--- NOTE | 2019-03-21 19:59 | OB/GYN Progress Note ---
Date of Encounter: 03/21/19 Time of Encounter: 19:56 - Assessment and Plan (1) S/P section Current Visit: Yes Status: Acute POD 1 s/p repeat c/s with tubal ligation at 39 weeks with good recovery - meeting day one milestones - voiding with out difficulty - pain well controlled on perc-5 - bleeding light Incision with yosef dressing in place (2) Breast feeding status of mother Current Visit: Yes Status: Acute Breast feeding with supplement forumla - script for pump written - support as needed Subjective - Subjective Principal diagnosis: s/p c/s Interval history: 23 y/o F POD 1 from repeat c/s and tubal ligation reports continued pain at wound site but responding to medications. Vitals notable for hypotension 88/36 with out symptoms or tachycardiac on opioid medications. She denies flatus or BM. She plans to breast feed with suppliment and doesn't have pump at home. Denies dysuria. Patient reports: appetite normal, voiding normally : doing well Objective - Vital Signs Latest vital signs: Vital Signs Temp Pulse Resp BP Pulse Ox 03/21/19 07:30 98.0 F 53 16 80/39 03/21/19 04:00 97.7 F 68 16 96/59 95 03/20/19 23:32 98.6 F 72 16 100/54 97 Intake and Output 03/21/19 03/21/19 03/21/19 07:59 15:59 23:59 Intake Total 350 / 1570 120 / 1570 1100 / 1570 Output Total 500 / 1500 1000 / 1500 Balance -150 / 70 120 / 70 100 / 70 Intake: Oral 350 / 1570 120 / 1570 1100 / 1570 Output: Urine 500 / 1500 1000 / 1500 Other: Meal Breakfast Dinner Percent of Meal Consumed 50% 100% Weight 96.162 kg Patient Weight 03/21/19 23:59 Weight 96.162 kg - Exam Lungs: bilateral: normal Chest: Normal S1, Normal S2 Extremities: Present: normal. Absent: edema Abdomen: Present: normal appearance, soft Incision: Present: dressed (yosef dressing intact) Uterus: Present: normal, firm Fundal Height: 3 (U/3) - Attending Attestation I examined this patient and my medical decision making was reviewed with the resident physician. I agree with the documented findings, disposition, and treatment plan as described above. Patient is here for scheduled section postop day 1 Fundus firm U/3, light bleeding. + Bowel sounds, YOSEF dressing intact.
[2019-03-22] MEDS: *HR* OxyCODONE/APAP 5/325 TABLET PO PRN ×4 (02:46→20:54)
[2019-03-22] MEDS: Ibuprofen 600 MG TABLET PO PRN ×3 (04:27→20:55)
[2019-03-22] MEDS ORDERED: Ondansetron ODT 4 MG TAB.RAPDIS SL ONE (07:06)
[2019-03-22] MEDS: Prenatal Vit/FA 1 EACH TABLET PO SCH (09:36)
--- NOTE | 2019-03-22 11:01 | OB/GYN Progress Note ---
Date of Encounter: 03/22/19 Time of Encounter: 10:59 - Assessment and Plan (1) S/P repeat low transverse Current Visit: Yes Status: Acute Meeting all day 2 milestones Continue routine pp care Anticipate d/c home tomorrow Subjective - Subjective Principal diagnosis: s/p RLTCS Interval history: Feeling well. Out of bed without dizziness. Some abdominal discomfort-using binder. Cramping minimal, using ibuprofen and Percocet. every 2- 3 hours. Some nipple soreness. Voiding without difficulty. Passing flatus, no BM yet. Tolerating regular diet. Patient reports: appetite normal, voiding normally, pain well controlled, ambulating normally : doing well, nursing well, bottle feeding Objective - Vital Signs Latest vital signs: Vital Signs Temp Pulse Resp BP Pulse Ox 03/22/19 08:34 98 F 66 16 123/75 93 03/21/19 22:40 97.7 F 65 16 104/60 97 Intake and Output 03/21/19 03/22/19 03/22/19 23:59 07:59 15:59 Intake Total 1200 / 1670 360 / 360 Output Total 1000 / 1500 200 / 200 Balance 200 / 170 160 / 160 Intake: Oral 1200 / 1670 360 / 360 Output: Urine 1000 / 1500 200 / 200 Other: Meal Dinner Breakfast Percent of Meal Consumed 100% 100% Weight 96.071 kg Patient Weight 03/22/19 23:59 Weight 96.071 kg - Exam Lungs: bilateral: normal Chest: Normal S1, Normal S2 Extremities: Present: normal Abdomen: Present: normal appearance, soft, gravid Incision: Present: normal, dry, dressed Uterus: Present: normal, firm Fundal Height: 0 (midline)
[2019-03-23] MEDS: *HR* OxyCODONE/APAP 5/325 TABLET PO PRN (04:51)
[2019-03-23] MEDS: Ibuprofen 600 MG TABLET PO PRN (04:51)
[2019-03-23 08:39] VITALS: BP 93/60
[2019-03-23] MEDS: Prenatal Vit/FA 1 EACH TABLET PO SCH (09:00)
--- NOTE | 2019-03-23 10:51 | Discharge Summary ---
Date of Encounter: 03/23/19 Time of Encounter: 10:46 - Discharge Diagnosis (1) S/P section Priority: Primary Status: Acute Comments: Patient meeting day three milestones. Pain well-controlled with prescribed medications. Voiding without difficulty, tolerating regular diet, bleeding light. No bowel movement yet. Anticipate discharge today (2) Breast feeding status of mother Priority: Secondary Status: Acute Comments: support as needed. Breast pump prescription provided (3) History of gestational diabetes mellitus Priority: Secondary Status: Acute Comments: Patient did not have a 1 hour with this . At her 3 hour glucose test her fasting was elevated so she was sent glucose testing supplies. She states she had some elevated glucose levels postprandial but for the most part they were normal. She will have the 2 hour GTT at her visit. I discussed this with patient and she understands the need for the testing as well as the need to be fasting. (4) Depression affecting , Priority: Secondary Status: Acute Comments: Patient with a history of depression after last . Dr. Pacheco started patient on Zoloft immediately . Prescription provided at discharge - Discharge Medications Prescriptions: New Breast Pump [BREAST PUMP] 1 each .ROUTE AD #1 each Docusate [Colace] 100 mg PO BID #60 capsule Ibuprofen [Ibu] 600 mg PO Q6HR #60 tablet Oxycodone HCl/Acetaminophen [Percocet 5-325 mg Tablet] 1 each PO Q6HR PRN 7 Days #28 tablet PRN Reason: Pain Prenat Vit Comb.10/Iron/FA/Dha [Vitafol-Ob+Dha Combo Pack] 1 each PO DAILY #30 combo..pkg Sertraline [Zoloft] 50 mg PO DAILY #30 tablet No Action Vit #108/Iron/FA [ One Tablet] 1 each PO DAILY Nitrofurantoin Monohyd/M-Cryst [Macrobid 100 mg Capsule] 100 mg PO BID #14 capsule Home Medications: Nitrofurantoin Monohyd/M-Cryst [Macrobid 100 mg Capsule] 100 mg PO BID #14 capsule 01/09/19 [Rx] Vit #108/Iron/FA [ One Tablet] 1 each PO DAILY 01/09/19 [History] Breast Pump [BREAST PUMP] 1 each .ROUTE AD #1 each 03/21/19 [Rx] Docusate [Colace] 100 mg PO BID #60 capsule 03/21/19 [Rx] Ibuprofen [Ibu] 600 mg PO Q6HR #60 tablet 03/21/19 [Rx] Oxycodone HCl/Acetaminophen [Percocet 5-325 mg Tablet] 1 each PO Q6HR PRN 7 Days #28 tablet 03/21/19 [Rx] Prenat Vit Comb.10/Iron/FA/Dha [Vitafol-Ob+Dha Combo Pack] 1 each PO DAILY #30 combo..pkg 03/21/19 [Rx] Sertraline [Zoloft] 50 mg PO DAILY #30 tablet 03/21/19 [Rx] Allergies/Adverse Reactions: Allergy/AdvReac Type Severity Reaction Status Date / Time Amoxicillin [From Amoxil] Allergy Rash Verified 06/07/18 20:18 Penicillins [PCN] Allergy Rash Verified 06/07/18 20:17 Data Procedures and tests throughout hospitalization: Laboratory Tests 03/20/19 03/20/19 03/20/19 Unknown Unknown Unknown WBC 11.7 H RBC 3.92 Hgb 11.3 L Hct 34.3 L MCV 87.5 MCH 28.8 MCHC 32.9 RDW 13.5 Plt Count 276 MPV 10.3 Immature Gran % 0.4 Seg Neutrophils % 74.0 Lymphocytes % 18.2 Monocytes % 6.3 Eosinophils % 0.9 Basophils % 0.2 Neutrophils # 8.7 Lymphocytes # 2.1 Monocytes # 0.7 Eosinophils # 0.1 Basophils # 0.0 Urine Opiates Screen Negative Ur Barbiturates Screen Negative Ur Phencyclidine Scrn Negative Ur Amphetamines Screen Negative U Benzodiazepines Scrn Negative Urine Cocaine Screen Negative U Marijuana (THC) Screen Negative Ur Drug Screen Interp See Below Specimen Rejected Labelling Date of admission: 03/20/19 08:09 Primary care physician: Gege Niño CNP Consults: 03/20/19 14:26 Consult to Technology Auditor (W&C) [CONS] Routine Reason For Exam: Reason for SW Consult: single mother Discharging clinician: Rina Krause Anticipated date of discharge: 03/23/19 - Patient Status Disposition: Home, Self-Care Functional capacity at discharge: independent ambulation Overall status at discharge: patient is progressing back to baseline - Discharge Instructions Follow Up With: Gege Niño CNP [Primary Care Provider] - - Diet and Activity Activity: resume usual activities as tolerated Diet: regular diet Hospital Course Reason for admission: section Delivery: section Episiotomy: none Laceration: none Other procedures: none complications: none Discharge diagnosis: IUP at term delivered baby: female Hospital course: Date of procedure: 03/20/19 Preop diagnosis: desires repeat , desires sterilization Post-op diagnosis: same Procedure: section, repeat low transverse, bilateral tubal ligation Surgeon: Joanne Connor Blood Loss: 400 Was there an web assistant present: Yes Hair And Makeup Designer: Noemy Watt Procurement Cost Coordinator: Vasu Galeas Anesthesia Type: Spinal section complications: none Disposition: PACU Specimens: Placenta, Right tube segment, Left tube segment - Infant (s) Infant A Infant Delivery Date: 03/20/19 Presentation: vertex Gender: Female Viability: Viable at 1 minute: 8 at 5 minutes: 9 Placenta: spontaneous Cord: nuchal cord, 3 umbilical vessels, delivered through nuchal - Narrative Narrative: Patient was taken to the operative suite and placed under spinal anesthetic. She was then prepped and draped in normal sterile fashion in the dorsal supine position. Timeout was then performed. Antibiotics were given at room time. SCDs are on and active. Pfannenstiel skin incision is then made and carried through to underlying layer of fascia with the Bovie. The fascia was then incised in the midline and incision extended laterally with the Galvan scissors. The fascia was tented up and dissected off the rectus muscles sharply. The rectus muscles were in the midline and the peritoneum was tented up and entered sharply with the Metzenbaum scissors. The peritoneal incision was then extended bluntly. The bladder blade was then inserted and the vesicouterine peritoneum was identified. A low transverse uterine incision was then made superior to the bladder reflection. The incision was extended digitally. The vertex was brought to the incision and the was delivered using fundal pressure. There was a loose nuchal cord that was delivered through. Cord was clamped and cut. was handed to waiting nursery staff. Placenta delivered spontaneously complete and intact with a three-vessel cord. The uterus was cleared of all clots and debris using moist laparotomy sponge. The uterine incision was then closed using 0 Vicryl in a running locked fashion. A second layer of the same suture was used to obtain excellent hemostasis. Attention was then turned to the patient's tubes. The right tube was grasped and followed to the fimbriated end. The midportion of the tube was then grasped and elevated. A knuckle of tube was then double suture ligated using O plain gut. The knuckle of tube was then transected in a Julissa fashion. Hemostasis was assured and the tube was returned to the abdomen. Attention was then turned to the patient's left adnexa. The left tube was then grasped and followed to the fimbriated end. The fimbria were adhered to the left ovary and the adhesions were taken down using the Bovie electrocautery. A partial salpingectomy with fimbriectomy was then performed using O plain gut. The distal portion of the tube was then transected and hemostasis was assured. The tube was returned to the abdomen. The abdomen was then cleared of all clots and debris using copious irrigation. The fascial incision was then closed using 0 PDS in a running fashion. The subcuticular tissue was then reapproximated using 0 Vicryl in a running fashion. The skin was closed using 4-0 Vicryl in a subcuticular fashion. [place] dressing is then placed. Mother and infant taken to recovery in stable condition. Time Attestation: Total time spent providing and/or coordinating discharge services: Time Spent: Less than 30 minutes - VTE Reasons for not Prescribing Prophylaxis: Treatment not Indicated - Low risk for VTE Documentation of Mechanical Device: Intermittent pneumatic compression device Exam - Constitutional Vitals: Temp Pulse Resp BP Pulse Ox 97.9 F 86 18 93/60 96 03/23/19 08:37 03/23/19 08:37 03/23/19 08:37 03/23/19 08:37 03/23/19 08:37 General appearance IM: A&O X 3, pleasant, no acute distress, answers questions appropriately - Respiratory Respiratory exam: Present: CTAB - Cardiovascular Cardiovascular exam IM: Present: RRR, +S1, +S2 - GI/Abdominal GI/Abdominal exam IM: normal bowel sounds, soft Incision: dressed (YOSEF) - Rectal Rectal exam: deferred - External exam: normal external exam Uterine Tone: Firm Uterus Position: 1 Finger Below Umbilicus, Midline - Extremities Exam Extremities exam IM: Present: full ROM, normal capillary refill, normal inspection - Neurological Exam Neurological exam: alert, normal gait, oriented X3
== END 2019-03-23 11:45 | disposition home or self-care (01) | DRG 785 ==
LOC: 1NENULAB 08:09 → 1NENUOBS 10:55
PROVIDERS: ADMIT Obstetrics & Gynecology; ATTEND Obstetrics & Gynecology